=== PATIENT | male | born 1980 | race Caucasian/White ===

== ENCOUNTER → 2017-08-27 | Outpatient (CLI) | payer OTHER ==
[~2017-08-27] VITALS: Ht 167.6 cm; Wt 89.0 kg
[~2017-08-27] MED LIST: CEPHALEXIN500 M1 PO; FLEXERIL; NORCO 325 MG-51 TAB PO; PERCOCET 325 MG1 TA2 PO
[2017-08-27 07:43] VITALS: BP 139/98; PULSE 81
== END ==
LOC: COL.RAD 07:20
DX: R22.1 Localized swelling, mass and lump, neck (principal); Z85.810 Personal history of malignant neoplasm of tongue; Z90.49 Acquired absence of other specified parts of digestive tract

== ENCOUNTER → 2017-09-08 | Outpatient (CLI) | payer SELFPAY ==
[~2017-09-08] VITALS: Ht 165.1 cm; Wt 84.1 kg
== END ==
LOC: SUN.CLI 09:58
DX: D00.07 Carcinoma in situ of tongue (principal)

== ENCOUNTER 2017-09-18 11:27 | Emergency (ER) | payer OTHER ==
[~2017-09-18] VITALS: Ht 165.1 cm; Wt 84.1 kg
[2017-09-18 11:42] VITALS: BP 112/60; TEMP 97.9
[2017-09-18] MEDS ORDERED: ROXICODONE 55 MG/TAB PO (11:59)
[2017-09-18] MEDS ORDERED: CEPHALEXIN500 M1 PO (12:09)
[2017-09-18 12:42] LABS: BASO % 0.4 % (0.0-2.0); EOS # 0.1 (0.0-0.7); EOS % 1.1 % (0-4.0); GRAN # 6.5 (1.4-6.5); GRAN % 78.6 % (42.2-75.2); HEMATOCRIT 42.7 % (42.0-52.0); HEMOGLOBIN 14.2 g/dl (13.5-18.0); LYMPH # 0.7 (1.2-3.4); LYMPH % 8.6 % (20.0-51.0); MEAN CELL VOLUME 92 fl (80.0-100.0); MEAN CORPUSCULAR HEMOGLOBIN 31 pg (27.0-31.0); MEAN CORPUSCULAR HGB CONC 33 g/dl (33.0-37.0); MEAN PLATELET VOLUME 9.3 fl (7.4-10.4); MONO # 0.9 (0.1-0.6); MONO % 10.6 % (1.7-9.3); PLATELET COUNT 399 K/mm3 (130-400); RED BLOOD COUNT 4.66 M/mm3 (4.20-5.60); WHITE BLOOD COUNT 8.3 K/mm3 (4.8-10.8)
[2017-09-18 12:53] LABS: ALBUMIN 4.4 gm/dL (3.5-5.0); BILIRUBIN,TOTAL 0.9 mg/dL (0.0-1.0); CALCIUM 9.3 mg/dL (8.4-10.2); CREATININE, serum 1.07 mg/dL (0.66-1.25); POTASSIUM 4.7 mmol/L (3.4-5.0); TOTAL PROTEIN 8.5 gm/dL (6.4-8.2)
[2017-09-18 14:41] VITALS: PULSE 91
== END 2017-09-18 14:41 | disposition home or self-care (01) ==
LOC: COL.ER 11:27
PROVIDERS: Emergency Medicine
DX: L04.0 Acute lymphadenitis of face, head and neck (principal); C76.0 Malignant neoplasm of head, face and neck; Z98.890 Other specified postprocedural states
CPT/HCPCS: J7030; Q9967

== ENCOUNTER 2018-01-26 10:47 | Emergency (ER) | payer OTHER ==
[~2018-01-26] VITALS: Ht 167.6 cm; Wt 69.5 kg
[~2018-01-26 10:47] MED LIST changes: +ROXICODONE 55 MG/TAB PO
[2018-01-26 10:50] VITALS: BP 120/70; PULSE 94; TEMP 98.1
== END 2018-01-26 12:46 | disposition home or self-care (01) ==
LOC: COL.ER 10:47
DX: J02.9 Acute pharyngitis, unspecified (principal); Z98.890 Other specified postprocedural states; Z85.89 Personal history of malignant neoplasm of other organs and systems

== ENCOUNTER 2018-06-28 05:54 | Emergency (ER) | payer OTHER ==
[~2018-06-28] VITALS: Ht 167.6 cm; Wt 63.6 kg
[2018-06-28 06:01] VITALS: BP 107/70; TEMP 98.5
[2018-06-28] MEDS ORDERED: FLEXERIL 1010 MG/TAB PO (06:43)
[2018-06-28] MEDS ORDERED: NAPROXEN 3375 MG/TAB PO (06:43)
[2018-06-28 07:13] VITALS: PULSE 65
== END 2018-06-28 07:14 | disposition home or self-care (01) ==
LOC: COL.ER 05:54
DX: M54.5 Low back pain (principal); M51.36 Other intervertebral disc degeneration, lumbar region
CPT/HCPCS: J1885

== ENCOUNTER 2019-02-24 10:20 | Emergency (ER) | payer OTHER ==
[~2019-02-24] VITALS: Ht 167.6 cm; Wt 84.1 kg
[~2019-02-24 10:20] MED LIST changes: +FLEXERIL 1010 MG/TAB PO; +NAPROXEN 3375 MG/TAB PO
[2019-02-24 10:47] LABS: BASO % 0.6 % (0.0-2.0); EOS # 0.1 (0.0-0.7); EOS % 1.3 % (0-4.0); GRAN % 63.6 % (42.2-75.2); HEMATOCRIT 42.8 % (42.0-52.0); LYMPH % 20.9 % (20.0-51.0); MEAN CELL VOLUME 93 fl (80.0-100.0); MEAN CORPUSCULAR HEMOGLOBIN 33 pg (27.0-31.0); MEAN CORPUSCULAR HGB CONC 35 g/dl (33.0-37.0); MONO # 0.6 (0.1-0.6); MONO % 13.4 % (1.7-9.3); PLATELET COUNT 160 K/mm3 (130-400); REDCELL DISTRIBUTION WIDTH-CV 12.1 % (11.5-14.5)
[2019-02-24 10:54] LABS: ALANINE AMINOTRANSFERASE 47 U/L (21-72); ALBUMIN 4.5 gm/dL (3.5-5.0); ALKALINE PHOSPHATASE 56 U/L (50-136); ANION GAP 10 mmol/L (7-16); AST,SGOT 40 U/L (15-37); BILIRUBIN,TOTAL 0.7 mg/dL (0.0-1.0); BLOOD UREA NITROGEN 15 mg/dL (9-20); CALCIUM 9.2 mg/dL (8.4-10.2); CARBON DIOXIDE 28 mmol/L (22-30); CHLORIDE 103 mmol/L (98-107); CREATININE, serum 1.17 (0.66-1.25); GLUCOSE 80 mg/dL (74-106); POTASSIUM 4.3 mmol/L (3.4-5.0); SODIUM 140 mmol/L (137-145)
[2019-02-24 11:10] LABS: TROPONIN-I < 0.012 ng/mL (0.000-0.035)
[2019-02-24 12:02] VITALS: BP 114/73; PULSE 68; TEMP 98
== END 2019-02-24 12:02 | disposition home or self-care (01) ==
LOC: COL.ER 10:20
PROVIDERS: Physician Assistant
DX: R07.89 Other chest pain (principal); Z85.810 Personal history of malignant neoplasm of tongue
CPT/HCPCS: J7030; Q9967

== ENCOUNTER 2021-08-18 09:53 | Emergency (ER) | payer OTHER ==
[~2021-08-18] VITALS: Ht 167.6 cm; Wt 88.6 kg
[2021-08-18 10:47] VITALS: TEMP 97.9
[2021-08-18 12:30] VITALS: BP 120/73; PULSE 62
== END 2021-08-18 12:34 | disposition home or self-care (01) ==
LOC: COL.ER 09:53
DX: S60.222A Contusion of left hand, initial encounter (principal); W22.8XXA Striking against or struck by other objects, initial encounter; Y93.89 Activity, other specified

== ENCOUNTER → 2023-08-06 | Outpatient (CLI) | payer OTHER | LOC: COL.RAD 13:04 | DX: C10.9 Malignant neoplasm of oropharynx, unspecified (principal) | CPT/HCPCS: Q9967 ==

== ENCOUNTER → 2024-01-13 | Outpatient (CLI) | payer OTHER ==
[~2024-01-13] MED LIST changes: +Iohexol 300 - 100 ML VIAL IV ONE; +NS 100 ML IV SCH
== END ==
LOC: COL.RAD 08:26
DX: C10.9 Malignant neoplasm of oropharynx, unspecified (principal)
CPT/HCPCS: Q9967

== ENCOUNTER → 2024-02-14 | Emergency (ER) | payer OTHER ==
[~2024-02-14] VITALS: Ht 165.1 cm; Wt 77.3 kg
[2024-02-14 08:43] VITALS: BP 134/99; TEMP 97.7
[2024-02-14 09:36] LABS: BASO % 0.3 % (0.0-2.0); EOS % 0.7 % (0.0-4.0); GRAN # 3.9 K/mm3 (1.4-6.5); HEMATOCRIT 46.5 % (42.0-52.0); HEMOGLOBIN 15.9 g/dl (13.5-18.0); LYMPH # 1.1 K/mm3 (1.2-3.4); LYMPH % 18.9 % (20.0-51.0); MEAN CELL VOLUME 89 fl (80.0-100.0); MEAN CORPUSCULAR HEMOGLOBIN 30 pg (27-31); MEAN CORPUSCULAR HGB CONC 34 g/dl (33.0-37.0); MONO # 0.6 K/mm3 (0.1-0.6); MONO % 10.8 % (1.7-9.3); PLATELET COUNT 243 K/mm3 (130-400); RED BLOOD COUNT 5.25 M/mm3 (4.20-5.60); REDCELL DISTRIBUTION WIDTH-CV 12.6 % (11.5-14.5)
[2024-02-14 09:54] LABS: ALBUMIN 4.1 gm/dL (3.5-5.0); BILIRUBIN,TOTAL 0.5 mg/dL (0.2-1.2); C-REACTIVE PROTEIN 0.63 mg/dL (0.00-0.50); CALCIUM 9.7 mg/dL (8.4-10.2); CREATININE, serum 1.11 mg/dL (0.72-1.25); POTASSIUM 4.2 mmol/L (3.5-4.5); TOTAL PROTEIN 7.9 gm/dL (6.2-8.1)
[2024-02-14 11:33] VITALS: PULSE 80
== END ==
LOC: COL.ER 08:32
PROVIDERS: Family Medicine
DX: C76.0 Malignant neoplasm of head, face and neck (principal); Z98.890 Other specified postprocedural states
CPT/HCPCS: Q9967